=== PATIENT | female | born 1995 | race Caucasian/White ===

== ENCOUNTER 2016-09-04 22:14 | Emergency (ER) | payer OTHER ==
[~2016-09-04] VITALS: Ht 160 cm; Wt 99.9 kg
[~2016-09-04 22:14] MED LIST: ALBUAER19 INH; OMEP20CA9 PO; ONDA4TAB7 SL; OXYC-57 PO
[2016-09-04 22:18] VITALS: TEMP 37.1; Ht 160 cm; Wt 99.9 kg
[2016-09-04] MEDS ORDERED: VNTHFA/IN INH (22:28)
[2016-09-04 22:43] VITALS: O2SAT 98
--- NOTE | 2016-09-04 23:04 | DIAGNOSTIC IMAGING REPORT ---
CHEST ONE VIEW PORTABLE HISTORY: EVALUATE ALTERED MENTAL STATUS/WEAKNESS COMPARISON: None. FINDINGS: The lungs are clear. Cardiac silhouette is top normal in size. No pleural effusions. No pneumothorax. IMPRESSION: No acute process. Electronically signed by: Jesse Chiu M.D. 09/04/2016 11:02 PM Dictated Date/Time: 09/04/2016 11:01 PM
[2016-09-04 23:09] LABS: URINE APPEARANCE CLEAR (CLEAR); URINE BILIRUBIN NEG (NEG); URINE COLOR YELLOW; URINE NITRITE NEG (NEG); URINE PH 5.5 (4.5-7.5); URINE SPECIFIC GRAVITY 1.033 (1.000-1.030); UROBILINOGEN NEG (NEG)
[2016-09-04] MEDS: SODIUM CHLORIDE 0.9% 1000ML 1,000 ML IV STA ×2 (23:13→23:38)
[2016-09-04 23:14] LABS: MANUAL MICROSCOPIC REQUIRED? NO; REVIEW REQ? NO
[2016-09-04 23:17] LABS: BASO % 0.1 %; BASO ABS # 0.01 K/uL (0-0.2); COMPLETE YES; HEMATOCRIT 35.4 % (37-47); IG% 0.2 %; LYMPH % 35.4 %; LYMPH ABS # 2.93 K/uL (1.2-3.4); MEAN CELL VOLUME 84.5 fL (80-100); MEAN CORPUSCULAR HEMOGLOBIN 29.6 pg (25-34); MEAN PLATELET VOLUME 10.5 fL (7.4-10.4); MONO % 8.7 %; NEUT % 54.6 %; PLATELET COUNT 185 K/uL (130-400); RED BLOOD COUNT 4.19 M/uL (4.2-5.4); WHITE BLOOD COUNT 8.27 K/uL (4.8-10.8)
[2016-09-04] MEDS ORDERED: ONDANSETRON INJ 2 MG/ML 2 ML VIAL IV STA (23:27)
[2016-09-04] MEDS ORDERED: KETOROLAC TROMETHAMINE 30 MG/ML VIAL IV STA (23:27)
[2016-09-04 23:37] LABS: ALT/SGPT 27 U/L (12-78); BLOOD UREA NITROGEN 16 mg/dl (7-18); BUN/CREATININE RATIO 22.1 (10-20); CARBON DIOXIDE 26 mmol/L (21-32); CHLORIDE 109 mmol/L (98-107); GLUCOSE 91 mg/dl (70-99); POTASSIUM 4.1 mmol/L (3.5-5.1); SODIUM 141 mmol/L (136-145)
[2016-09-04 23:49] LABS: ALKALINE PHOSPHATASE 69 U/L (45-117); AST/SGOT 18 U/L (15-37)
[2016-09-05 01:08] VITALS: BP 102/66; PULSE 79; O2SAT 100
--- NOTE | 2016-09-05 02:16 | EMERGENCY ROOM VISIT NOTE ---
History Report prepared by Mayiibshavon: Cash Urbano Under the Supervision of: Dr. Mariano Mtz D.O. First contact with patient: 22:23 Chief Complaint: HEAD INJURY (MINOR) Stated Complaint: PASSED OUT YESTERDAY,SMACKED HEAD, HEADACHE History of Present Illness The patient is a 21 year old female who presents to the Emergency Room with complaints of a head injury occurring yesterday. She states that she fell and hit her head after standing up to do her laundry. She states that she was informed that she passed out, but is not sure if she actually did or not. The patient states that she has a history of low blood pressure and has an extensive history of syncope. She states that she normally passes out when she gets up quickly. She has had this worked up extensively by her primary care doctor and has had a full cardiac workup. She states that she hit the back of her head on her fall. She notes that she has a history of concussions. The patient states that she has had a persistent headache ever since the fall. She also complains of nausea. She is not on any blood thinners. Pt denies headache, change in vision, fevers, chest pain, shortness of breath, vomiting, diarrhea, pain with urination, and melena. Denies any history of diabetes, hypertension, CAD, hyperlipidemia or sudden in the family at a young age. She also denies hemoptysis, swelling of the legs, recent trips, recent surgeries, history cancer, previous blood clots and smoking. Source of History: patient Onset: Yesterday Position: head Timing: other (episode) Associated Symptoms: + nausea, No SOB, No chest pain, No fevers, No melena, No urinary symptoms, No vomiting Review of Systems See HPI for pertinent positives & negatives. A total of 10 systems reviewed and were otherwise negative. Past Medical & Surgical Medical Problems: (1) Asthma (2) PNA (pneumonia) (3) Stomach problems Family History Diabetes mellitus (DM) FH: cancer FH: gallbladder disease FH: heart disease FH: lung disease Hypertension Kidney disease Kidney stones Social History Smoking Status: Never Smoker Alcohol Use: none Drug Use: none Marital Status: Housing Status: lives with family Occupation Status: employed Current/Historical Medications Scheduled Omeprazole (Prilosec), 20 MG PO BID Scheduled PRN Albuterol Hfa (Ventolin Hfa), 2-4 PUFFS INH QID PRN for Shortness of Breath Allergies Coded Allergies: Prednisone (Verified Allergy, Intermediate, SHORTNESS OF BREATH, 09/04/16) Physical Exam Vital Signs Date Time Temp Pulse Resp B/P Pulse Ox O2 Delivery O2 Flow Rate FiO2 09/05/16 01:08 79 16 102/66 100 09/04/16 23:39 88 20 123/69 100 Room Air 09/04/16 23:35 86 20 119/73 100 Room Air 73 119/77 111 123/69 09/04/16 22:58 91 09/04/16 22:43 98 Room Air 09/04/16 22:18 37.1 109 20 137/88 99 Room Air Physical Exam GENERAL: Disheveled, chronically ill-appearing, nontoxic, no acute distress EYE EXAM: normal conjunctiva, PERRL and EOM's intact OROPHARYNX: no exudate, no erythema, lips, buccal mucosa, and tongue normal and mucous membranes are moist NECK: supple, no nuchal rigidity, no adenopathy, non-tender LUNGS: Clear to auscultation. Normal chest wall mechanics HEART: no murmurs, S1 normal and S2 normal ABDOMEN: abdomen soft, non-tender, normo-active bowel sounds, no masses, no rebound or guarding. BACK: Back is symmetrical on inspection and there is no deformity, no midline tenderness, no CVA tenderness. SKIN: no rashes and no bruising UPPER EXTREMITIES: upper extremities are grossly normal. LOWER EXTREMITIES: No pitting edema. NEURO EXAM: Normal sensorium, cranial nerves II-XII intact, normal speech, no weakness of arms, no weakness of legs. No drift. Finger to nose intact. Gross sensation intact. Medical Decision & Procedures ER Provider Diagnostic Interpretation: Xray results per the radiologist and my interpretation. Other results have been interpreted by the radiologist and reviewed by me. CHEST ONE VIEW PORTABLE FINDINGS: The lungs are clear. Cardiac silhouette is top normal in size. No pleural effusions. No pneumothorax. IMPRESSION: No acute process. Electronically signed by: Jesse Chiu M.D. CT HEAD: No ICH, mass effect, or midline shift. Maurer-white matter differentiation is preserved. No evidence of skull fracture. Clear paranasal sinuses and mastoid air cells. CT C-SPINE: Straightening of the cervical spine without evidence of acute fracture or subluxation. Vertebral body height and alignment are maintained. Craniocervical and atlantoaxial relationships are normal. There is no prevertebral soft tissue swelling. Lung apices are clear. Laboratory Results 09/04/16 23:00 Red Blood Count 4.19, Mean Corpuscular Volume 84.5, Mean Corpuscular Hemoglobin 29.6, Mean Corpuscular Hemoglobin Concent 35.0, Mean Platelet Volume 10.5, Neutrophils (%) (Auto) 54.6, Lymphocytes (%) (Auto) 35.4, Monocytes (%) (Auto) 8.7, Eosinophils (%) (Auto) 1.0, Basophils (%) (Auto) 0.1, Neutrophils # (Auto) 4.51, Lymphocytes # (Auto) 2.93, Monocytes # (Auto) 0.72, Eosinophils # (Auto) 0.08, Basophils # (Auto) 0.01 09/04/16 23:00 Test 09/04/16 22:50 09/04/16 23:00 09/04/16 23:10 Urine Color YELLOW Urine Appearance CLEAR (CLEAR) Urine pH 5.5 (4.5-7.5) Urine Specific [place] 1.033 (1.000-1.030) Urine Protein NEG (NEG) Urine Glucose (UA) NEG (NEG) Urine Ketones NEG (NEG) Urine Occult Blood NEG (NEG) Urine Nitrite NEG (NEG) Urine Bilirubin NEG (NEG) Urine Urobilinogen NEG (NEG) Urine Leukocyte Esterase NEG (NEG) White Blood Count 8.27 K/uL (4.8-10.8) Red Blood Count 4.19 M/uL (4.2-5.4) Hemoglobin 12.4 g/dL (12.0-16.0) Hematocrit 35.4 % (37-47) Mean Corpuscular Volume 84.5 fL (80-100) Mean Corpuscular Hemoglobin 29.6 pg (25-34) Mean Corpuscular Hemoglobin Concent 35.0 g/dl (32-36) Platelet Count 185 K/uL (130-400) Mean Platelet Volume 10.5 fL (7.4-10.4) Neutrophils (%) (Auto) 54.6 % Lymphocytes (%) (Auto) 35.4 % Monocytes (%) (Auto) 8.7 % Eosinophils (%) (Auto) 1.0 % Basophils (%) (Auto) 0.1 % Neutrophils # (Auto) 4.51 K/uL (1.4-6.5) Lymphocytes # (Auto) 2.93 K/uL (1.2-3.4) Monocytes # (Auto) 0.72 K/uL (0.11-0.59) Eosinophils # (Auto) 0.08 K/uL (0-0.5) Basophils # (Auto) 0.01 K/uL (0-0.2) RDW Standard Deviation 43.3 fL (36.4-46.3) RDW Coefficient of Variation 14.2 % (11.5-14.5) Immature Granulocyte % (Auto) 0.2 % Immature Granulocyte # (Auto) 0.02 K/uL (0.00-0.02) D-Dimer 470 ug/L FEU (0-500) Anion Gap 6.0 mmol/L (3-11) Est Creatinine Clear Calc Drug Dose 142.1 ml/min Estimated GFR () 142.5 Estimated GFR (Non- 123.0 BUN/Creatinine Ratio 22.1 (10-20) Calcium Level 9.0 mg/dl (8.5-10.1) Total Bilirubin 0.4 mg/dl (0.2-1) Direct Bilirubin < 0.1 mg/dl (0-0.2) Aspartate Amino Transf (AST/SGOT) 18 U/L (15-37) Alanine Aminotransferase (ALT/SGPT) 27 U/L (12-78) Alkaline Phosphatase 69 U/L (45-117) Troponin I < 0.015 ng/ml (0-0.045) Total Protein 7.7 gm/dl (6.4-8.2) Albumin 3.6 gm/dl (3.4-5.0) Thyroid Stimulating Hormone (TSH) 2.790 uIu/ml (0.300-4.500) Human Chorionic Gonadotropin, Qual NEG (NEG) Bedside Glucose 101 mg/dl (70-90) Laboratory results per my review. Medications Administered Medications (Trade) Dose Ordered Sig/Moise Route Start Time Stop Time Status Last Admin Dose Admin Sodium Chloride (Nss 1000ml) 1,000 ml @ 999 mls/hr Q1H1M STAT IV 09/04/16 22:32 09/04/16 23:32 DC 09/04/16 23:38 999 MLS/HR Ondansetron HCl (Zofran Inj) 4 mg NOW STAT IV 09/04/16 23:27 09/04/16 23:28 DC 09/04/16 23:38 4 MG Ketorolac Tromethamine (Toradol Inj) 30 mg NOW STAT IV 09/04/16 23:27 09/04/16 23:28 DC 09/04/16 23:39 30 MG ECG Indication: syncope Rate (beats per minute): 92 Rhythm: sinus rhythm Findings: T-wave inversion (lead 3), other (Normal axis. Sinus arrhythmia) Comparison ECG Date: no prior available ED Course ED COURSE: Vital signs were reviewed and showed hypertension. The patients medical record was reviewed The above diagnostic studies were performed and reviewed. ED treatments and interventions as stated above. 2227: The patient was evaluated in room B12B. A complete history and physical examination was performed. 2232: Ordered Sodium Chloride 1000 ml @ 999 mls/hr IV. 2327: Ordered Toradol Inj 30 mg IV, Zofran Inj 4 mg IV. 0050: Upon reevaluation, the patient is resting comfortably. I discussed my findings with the patient and she understands and agrees with the treatment plan. Based on the patients age, coexisting illnesses, exam and lab findings the decision to treat as an outpatient was made. The patient remained stable while under my care. The patient appeared well at the time of discharge. Medical Decision Differential diagnosis includes etiologies such as vasovagal event, infection, hypoglycemia, electrolyte abnormalities, cardiac sources, intracerebral event, toxicologic, neurologic, as well as others were entertained. Patient is a 21-year-old female who presents the ER following falling and hitting her head yesterday. She thinks that she may have passed out. She does have a history of syncope and has been worked up extensively by primary care doctor. She is completely neurologically intact. CT of the head and neck was unremarkable. CBC, BMP, LFTs, bilirubin and troponin were unremarkable. Urine was negative. Dimer was negative. UA was unremarkable. CT of the head and neck was negative. Chest x-ray was unremarkable. EKG was unremarkable. Patient was updated regards to findings. She is discharged with a concussion to follow-up with her primary care doctor for her previous bouts of syncope. Discussed with Pt concerning signs and symptoms to watch out for. Pt was instructed to follow up with their PCP and discussed with the patient their option to return to the ED at anytime for persistent or worsening symptoms. The appropriate anticipatory guidance and out-patient management, including indications for return to the emergency department, were explained at length to the patient and understood. Impression Primary Impression: Concussion Additional Impression: Syncope Scribe Attestation The scribe's documentation has been prepared under my direction and personally reviewed by me in its entirety. I confirm that the note above accurately reflects all work, treatment, procedures, and medical decision making performed by me. Departure Information Dispostion Home / Self-Care Referrals Maxime Gustafson D.O. (PCP) Forms HOME CARE DOCUMENTATION FORM, IMPORTANT VISIT INFORMATION Patient Instructions Concussion, My [facility] Additional Instructions Please follow up with your primary care doctor with in the next 24 hours. Any worsening of your symptoms, please return to the ED immediately. This includes recurrent passing out, worsening headache, confusion, fevers greater than 100.4 , or any other concerning signs or symptoms from your standpoint. Please make sure you continue to follow up with your primary care doctor in regards to your syncope. Problem Qualifiers Primary Impression: Concussion Encounter type: initial encounter Loss of consciousness presence/duration: with LOC of unspecified duration Qualified Codes: S06.0X9A - Concussion with loss of consciousness of unspecified duration, initial encounter Additional Impression: Syncope Syncope type: unspecified Qualified Codes: R55 - Syncope and collapse
--- NOTE | 2016-09-05 06:38 | DIAGNOSTIC IMAGING REPORT ---
CERVICAL SPINE CT CT DOSE: 1125.02 mGy.cm HISTORY: Trauma. Pain. neck pain s/p fall TECHNIQUE: Multiaxial CT images of the cervical spine were performed and reformatted in the sagittal and coronal plane without the use of contrast. COMPARISON: None. FINDINGS: No fractures. No subluxation. Prevertebral soft tissues and the C1-C2 interval are intact. No pneumothorax. Reversal of normal cervical curvature presumably secondary to muscular spasm IMPRESSION: No fractures within the cervical spine. Muscle spasm Electronically signed by: Jalil Motley M.D. 09/05/2016 6:36 AM Dictated Date/Time: 09/05/2016 6:34 AM
--- NOTE | 2016-09-05 07:07 | DIAGNOSTIC IMAGING REPORT ---
CT SCAN OF THE BRAIN WITHOUT IV CONTRAST CLINICAL HISTORY: Syncope. COMPARISON STUDY: No priors. TECHNIQUE: Unenhanced axial CT scan of the brain is performed from the vertex to the skull base. Automated dose control exposure was utilized. FINDINGS: Brain parenchyma: The brain parenchyma is normal in appearance. There is no hemorrhage, mass effect, or evidence of acute territorial ischemia by CT criteria. Maurer-white matter is preserved. No extra-axial fluid collection is seen. Ventricles, sulci, cisterns: Normal in configuration. Intracranial vasculature: The visualized intracranial vasculature at the skull base is normal in appearance. Calvarium: There is no depressed calvarial fracture. Sinuses and mastoids: The visualized paranasal sinuses are clear. The mastoid air cells are well pneumatized. Orbits: The bony orbits are grossly intact. IMPRESSION: No acute intracranial abnormality. Electronically signed by: Benjie Nguyen M.D. 09/05/2016 7:06 AM Dictated Date/Time: 09/05/2016 7:05 AM
== END 2016-09-05 01:09 | disposition home or self-care (01) ==
LOC: C.EDB 22:17
DX: S06.0X9A Concussion with loss of consciousness of unspecified duration, initial encounter (principal); R55 Syncope and collapse; W18.00XA Striking against unspecified object with subsequent fall, initial encounter; J45.909 Unspecified asthma, uncomplicated; Z87.01 Personal history of pneumonia (recurrent)